=== PATIENT | male | born 1940 | race Two or more races ===

== ENCOUNTER 2021-08-26 07:03 | Day surgery (SDC) | payer OTHER ==
[2021-08-26] VITALS (10 sets, daily range): BP systolic 118–153; BP diastolic 53–74
[~2021-08-26] VITALS: Ht 193 cm; Wt 99.8 kg
[~2021-08-26 07:03] MED LIST: ATO40T PO; FURO1TAB31 PO; LISI20TA28 PO; POTA10TA51 PO; WARF5TAB71 PO
[2021-08-26] MEDS ORDERED: HEPARIN SODIUM (PORCINE) 5000 UNITS/ML 1ML VIAL ONE (08:37)
[2021-08-26] MEDS ORDERED: VERAPAMIL 2.5MG/ML INJ 2ML VIAL IV ONE (08:38)
[2021-08-26] MEDS ORDERED: MIDAZOLAM HCL 2MG/2ML 2ml VIAL (1mg/ml) ONE (08:38)
[2021-08-26] MEDS ORDERED: fentaNYL CITRATE 100 MCG/2 ML VL ONE (08:38)
[2021-08-26] MEDS ORDERED: ANGIOMAX 250 MG VIAL IV ONE ×2 (08:39→10:05)
[2021-08-26] MEDS ORDERED: SODIUM CHL 0.9% 50 ML ONE ×2 (08:40→10:05)
[2021-08-26] MEDS ORDERED: LIDOCAINE 2%HCL (LOCAL ANESTH.) INJ 10ml MDV ONE (08:52)
[2021-08-26] MEDS ORDERED: IODIXANOL 320MG/ML 100ML BTL IV ONE ×2 (09:22→09:53)
[2021-08-26] MEDS ORDERED: CLOPIDOGREL 300 MG TAB ONE (10:25)
[2021-08-26] MEDS ORDERED: ASPirin 325 MG TAB ONE (10:26)
[2021-08-26] MEDS ORDERED: SODIUM CHLORIDE 0.9% 1,000 ML IV SCH (10:35)
== END 2021-08-26 15:57 | disposition home or self-care (01) ==
LOC: CATH 07:03
PROVIDERS: ATTEND Internal Medicine Cardiovascular Disease
DX: R94.39 Abnormal result of other cardiovascular function study (principal); I25.10 Atherosclerotic heart disease of native coronary artery without angina pectoris; T82.855A Stenosis of coronary artery stent, initial encounter; Z79.02 Long term (current) use of antithrombotics/antiplatelets; Z80.1 Family history of malignant neoplasm of trachea, bronchus and lung; Z87.891 Personal history of nicotine dependence; Z20.822 Contact with and (suspected) exposure to COVID-19; Y82.8 Other medical devices associated with adverse incidents; Y83.1 Surgical operation with implant of artificial internal device as the cause of abnormal reaction of the patient, or of later complication, without mention of misadventure at the time of the procedure
CPT/HCPCS: 93458; C1725; C1726; C1769; C1874; C1887; C1894; C9600; J0583; J1644; J2001; J2250; J3010; J7030; Q9967; U0003; 99152; 99153

== ENCOUNTER 2022-01-27 10:36 | Inpatient (IN) | payer OTHER ==
[~2022-01-27] VITALS: Ht 193 cm; Wt 102.6 kg
[2022-01-27 11:51] LABS: Basophils # (auto) 0 10 ^3/uL (0-0.2); Basophils % (auto) 0.5 % (0.0-2.0); Eosinophils # (auto) 0.1 10 ^3/uL (0-0.8); Hematocrit 38.3 % (41.0-53.0); Hemoglobin 12.4 g/dL (13.5-17.5); Lymphocytes # (auto) 0.8 10 ^3/uL (0.4-5.4); Lymphocytes % (auto) 11.2 % (10.0-50.0); Mean Corpuscular Hemoglobin 30.4 pg (28.0-32.0); Mean Corpuscular Hgb Conc. 32.3 g/dL (32.0-36.0); Mean Corpuscular Volume 94.1 fL (80.0-100.0); Monocytes # (auto) 0.9 10 ^3/uL (0-1.3); Monocytes % (auto) 12.6 % (0.0-12.0); Neutrophils # (auto) 5.3 10 ^3/uL (1.6-8.6); Neutrophils % (auto) 74.7 % (37.0-80.0); Red Blood Cells 4.07 10^6/uL (4.5-5.90); Red Cell Distribution Width 15.1 % (11.8-14.3); White Blood Cell 7.1 10^3/uL (4.4-10.8)
[2022-01-27 12:09] LABS: INR 1.18 (0.9-1.15); Partial Thromboplastin Time 28.2 sec (24.6-33.4)
[2022-01-27 12:10] LABS: Albumin 3.4 g/dL (3.4-5.0); Calcium 8.9 mg/dL (8.5-10.1); Magnesium 2.4 mg/dL (1.6-2.6); Potassium 4.3 mmol/L (3.5-5.1)
[2022-01-27 12:14] LABS: BUN/Creatinine Ratio 24.2; Bilirubin, Total 1.3 mg/dL (0.2-1.0); Total Protein 6.9 g/dL (6.4-8.2)
[2022-01-27 12:25] LABS: Urine WBC None Seen /hpf (0 - 3)
[2022-01-27 12:32] LABS: Urine Bacteria NONE SEEN /hpf (None Seen); Urine Blood 3+ /uL (Negative); Urine Specific Gravity 1.014 (1.001-1.035)
[2022-01-27] MEDS ORDERED: MORPHINE SULFATE INJ 2 MG/ml SYRG IV PRN (18:30)
[2022-01-27] MEDS ORDERED: NITROGLYCERIN 0.4 MG SL TAB SL PRN (18:30)
[2022-01-27 22:47] VITALS: BP 116/44
[2022-01-27 22:48] VITALS: BP 116/44
[2022-01-28] VITALS (7 sets, daily range): BP systolic 93–112; BP diastolic 54–63
[2022-01-28 07:00] LABS: BUN/Creatinine Ratio 28.6; Calcium 9.1 mg/dL (8.5-10.1); Potassium 4.2 mmol/L (3.5-5.1)
[2022-01-28] MEDS ORDERED: SOD CHL 0.45% 1,000 ML IV SCH (08:30)
[2022-01-28] MEDS ORDERED: LISINOPRIL 20 MG TAB PO SCH (10:00)
[2022-01-28] MEDS: POTASSIUM CHL 20 Meq TABLET PO SCH (10:11)
[2022-01-28] MEDS: FUROSEMIDE 40 MG TAB PO SCH (10:11)
[2022-01-28] MEDS: CLOPIDOGREL BISULFATE 75 MG TAB PO SCH (10:12)
[2022-01-28] MEDS: ATORVASTATIN 20 MG TAB PO SCH (21:20)
[2022-01-28] MEDS: APIXABAN 5 MG TAB PO SCH (21:20)
[2022-01-29] VITALS (8 sets, daily range): BP systolic 103–136; BP diastolic 55–77
[2022-01-29] MEDS ORDERED: ALBUTEROL SULF 2.5 MG/0.5ML(0.5%) NEB SOLN NEB PRN (08:00)
[2022-01-29] MEDS ORDERED: IPRATROPIUM BROM 0.5 MG/2.5ML INH SOL NEB PRN (08:00)
[2022-01-29] MEDS: APIXABAN 5 MG TAB PO SCH ×2 (10:53→22:05)
[2022-01-29] MEDS: CLOPIDOGREL BISULFATE 75 MG TAB PO SCH (10:53)
[2022-01-29] MEDS: FUROSEMIDE 40 MG TAB PO SCH (10:55)
[2022-01-29] MEDS: POTASSIUM CHL 20 Meq TABLET PO SCH (10:55)
[2022-01-29] MEDS: CARVEDILOL 3.125 MG TAB PO SCH ×2 (10:57→22:00)
[2022-01-29] MEDS: DAPAGLIFLOZIN 5 MG TAB PO SCH (10:57)
[2022-01-29 11:53] LABS: BUN/Creatinine Ratio 26.9; Calcium 9.1 mg/dL (8.5-10.1); Potassium 4.1 mmol/L (3.5-5.1)
[2022-01-29 12:25] LABS: INR 1.2 (0.9-1.15)
[2022-01-29 18:06] LABS: Urine Bacteria NONE SEEN /hpf (None Seen); Urine Blood 3+ /uL (Negative); Urine Specific Gravity 1.013 (1.001-1.035); Urine WBC 3 /hpf (0 - 3)
[2022-01-29] MEDS: ATORVASTATIN 20 MG TAB PO SCH (22:05)
[2022-01-30 04:58] LABS: Basophils # (auto) 0 10 ^3/uL (0-0.2); Basophils % (auto) 0.5 % (0.0-2.0); Eosinophils # (auto) 0.1 10 ^3/uL (0-0.8); Eosinophils % (auto) 1.8 % (0.0-7.0); Hematocrit 37.1 % (41.0-53.0); Hemoglobin 12.5 g/dL (13.5-17.5); Lymphocytes % (auto) 14.6 % (10.0-50.0); Mean Corpuscular Hemoglobin 30.8 pg (28.0-32.0); Mean Corpuscular Hgb Conc. 33.6 g/dL (32.0-36.0); Mean Corpuscular Volume 91.8 fL (80.0-100.0); Monocytes % (auto) 14.3 % (0.0-12.0); Neutrophils # (auto) 4.8 10 ^3/uL (1.6-8.6); Neutrophils % (auto) 68.8 % (37.0-80.0); Red Blood Cells 4.04 10^6/uL (4.5-5.90); Red Cell Distribution Width 15.1 % (11.8-14.3)
[2022-01-30 05:00] VITALS: BP 118/59
[2022-01-30 06:04] LABS: BUN/Creatinine Ratio 26.6; Calcium 8.9 mg/dL (8.5-10.1); Potassium 4.3 mmol/L (3.5-5.1)
[2022-01-30 09:00] VITALS: BP 113/66
[2022-01-30] MEDS: DAPAGLIFLOZIN 5 MG TAB PO SCH (09:45)
[2022-01-30] MEDS: POTASSIUM CHL 20 Meq TABLET PO SCH (09:45)
[2022-01-30] MEDS: CARVEDILOL 3.125 MG TAB PO SCH (09:46)
[2022-01-30] MEDS: CLOPIDOGREL BISULFATE 75 MG TAB PO SCH (09:46)
[2022-01-30] MEDS: FUROSEMIDE 40 MG TAB PO SCH (09:46)
[2022-01-30] MEDS: APIXABAN 5 MG TAB PO SCH (09:46)
[2022-01-30 13:00] VITALS: BP 113/64
[2022-01-30] MEDS ORDERED: TAM04C PO (14:21)
[2022-01-30] MEDS ORDERED: FINA5TAB4 PO (14:21)
[2022-01-30 15:53] VITALS: BP 113/60
[2022-01-30 17:00] VITALS: BP 126/61
== END 2022-01-30 17:20 | disposition home or self-care (01) | DRG 303 ==
LOC: ER 10:36 → TELE 18:29 → TELE-CENTR 22:24
PROVIDERS: ADMIT Hospitalist; ATTEND Hospitalist
PROC: 05H933Z Insertion of Infusion Device into Right Brachial Vein, Percutaneous Approach (ICD-10-PCS; principal; 2022-01-27)
PROC: B54MZZA Ultrasonography of Right Upper Extremity Veins, Guidance (ICD-10-PCS; 2022-01-27)
DX: I25.10 Atherosclerotic heart disease of native coronary artery without angina pectoris (principal); I50.20 Unspecified systolic (congestive) heart failure; J98.11 Atelectasis; N13.2 Hydronephrosis with renal and ureteral calculous obstruction; N13.8 Other obstructive and reflux uropathy; N17.9 Acute kidney failure, unspecified; E11.21 Type 2 diabetes mellitus with diabetic nephropathy; E78.5 Hyperlipidemia, unspecified; I48.91 Unspecified atrial fibrillation; I11.0 Hypertensive heart disease with heart failure; J43.9 Emphysema, unspecified; N40.1 Benign prostatic hyperplasia with lower urinary tract symptoms; Z20.822 Contact with and (suspected) exposure to COVID-19; N32.0 Bladder-neck obstruction; N39.490 Overflow incontinence; Z79.02 Long term (current) use of antithrombotics/antiplatelets; I25.2 Old myocardial infarction; Z79.899 Other long term (current) drug therapy; Z85.118 Personal history of other malignant neoplasm of bronchus and lung; Z95.5 Presence of coronary angioplasty implant and graft; Z82.49 Family history of ischemic heart disease and other diseases of the circulatory system
CPT/HCPCS: 36415; 71045; 71250; 76775; 80048; 80053; 81001; 83735; 83880; 84443; 84484; 85025; 85379; 85610; 85730; 87081; 93005; 93306; 97163; G0378

== ENCOUNTER 2022-02-01 23:18 | Emergency (ER) | payer OTHER ==
[~2022-02-01 23:18] MED LIST changes: +FINA5TAB4 PO; +TAM04C PO
== END 2022-02-02 00:22 | disposition left against medical advice (07) ==
LOC: ER 23:18
DX: R31.9 Hematuria, unspecified (principal); Z53.21 Procedure and treatment not carried out due to patient leaving prior to being seen by health care provider

== ENCOUNTER 2022-04-05 06:46 | Inpatient (IN) | payer OTHER ==
[~2022-04-05] VITALS: Ht 188 cm; Wt 105.8 kg
[2022-04-05] VITALS (13 sets, daily range): BP systolic 100–133; BP diastolic 55–86
[~2022-04-05 06:46] MED LIST changes: -WARF5TAB71 PO
[2022-04-05] MEDS ORDERED: VANCOMYCIN 1GM/250ML 250 ML IV ONE ×2 (07:30→07:40)
[2022-04-05] MEDS ORDERED: VANCOMYCIN HCL 1000 MG VL ONE (07:52)
[2022-04-05] MEDS ORDERED: MIDAZOLAM HCL 2MG/2ML 2ml VIAL (1mg/ml) ONE (07:52)
[2022-04-05] MEDS ORDERED: fentaNYL CITRATE 100 MCG/2 ML VL ONE (07:52)
[2022-04-05] MEDS ORDERED: LIDOCAINE 2%HCL (LOCAL ANESTH.) INJ 20ML MDV ONE (07:53)
[2022-04-05] MEDS ORDERED: IOHEXOL 350 MG/ML 100ML IJ ONE ×2 (08:16→09:42)
[2022-04-05] MEDS ORDERED: ceFAZolin 1GM VL ONE (08:32)
[2022-04-05 13:09] LABS: Hematocrit 35.3 % (41.0-53.0); Hemoglobin 11.4 g/dL (13.5-17.5); Mean Corpuscular Hemoglobin 29.4 pg (28.0-32.0); Mean Corpuscular Hgb Conc. 32.2 g/dL (32.0-36.0); Mean Corpuscular Volume 91.4 fL (80.0-100.0); Red Blood Cells 3.86 10^6/uL (4.5-5.90); Red Cell Distribution Width 16.9 % (11.8-14.3); White Blood Cell 5.8 10^3/uL (4.4-10.8)
[2022-04-05 13:21] LABS: Band Neutrophils % (manual) 0; Basophils % (manual) 0 (0.0-2.0); Blast Cells 0; Eosinophils % (manual) 0 (0-7); Metamyelocytes % 0; Myelocytes % 0; Promyelocytes % 0; Reactive Lymphocytes 0
[2022-04-05 13:36] LABS: Alanine Aminotransferase 31 U/L (16-61); Anion Gap 8 (5-15); BUN/Creatinine Ratio 20.9; Blood Urea Nitrogen 29 mg/dL (7-18); Calcium 8.1 mg/dL (8.5-10.1); Carbon Dioxide 23 mmol/L (21-32); Chloride 112 mmol/L (98-107); GFR African American 63 mL/min; GFR Non-African American 52 mL/min; Glucose 98 mg/dL (74-106); Potassium 4.9 mmol/L (3.5-5.1); Sodium 143 mmol/L (136-145)
[2022-04-05 13:39] LABS: Alkaline Phosphatase 188 U/L (45-117); Aspartate Aminotransferase 23 U/L (15-37); Bilirubin, Total 1.2 mg/dL (0.2-1.0); Total Protein 6.3 g/dL (6.4-8.2)
[2022-04-05 14:24] LABS: Lymphocytes % (manual) 15 (10.0-50.0); Monocytes % (manual) 24 (0-12)
[2022-04-05] MEDS ORDERED: TAMSULOSIN HYDROCHLORIDE 0.4 MG CAP PO SCH (18:00)
[2022-04-05] MEDS ORDERED: VANCOMYCIN 1GM/250ML 250 ML IV SCH (20:00)
[2022-04-05] MEDS ORDERED: ATORVASTATIN 20 MG TAB PO SCH (22:00)
[2022-04-05] MEDS: DOXYCYCLINE 100 MG TAB/CAP PO SCH (22:19)
[2022-04-06 04:30] VITALS: BP 104/70
[2022-04-06 08:00] VITALS: BP 114/69
[2022-04-06] MEDS ORDERED: VANCOMYCIN 1GM/250ML 250 ML IV SCH (08:00)
[2022-04-06] MEDS: DOXYCYCLINE 100 MG TAB/CAP PO SCH (09:43)
[2022-04-06] MEDS ORDERED: FINASTERIDE 5 MG TAB PO SCH (10:00)
[2022-04-06] MEDS ORDERED: LISINOPRIL 20 MG TAB PO SCH (10:00)
[2022-04-06] MEDS ORDERED: FUROSEMIDE 40 MG TAB PO SCH (10:00)
[2022-04-06] MEDS ORDERED: POTASSIUM CHL 20 Meq TABLET PO SCH (10:00)
[2022-04-06 12:00] VITALS: BP 112/68
[2022-04-06 12:26] VITALS: BP 112/68
== END 2022-04-06 14:30 | disposition home or self-care (01) | DRG 227 ==
LOC: CATH 06:46 → TELE 10:31 → TELE-EAST 16:50
PROVIDERS: ADMIT Specialist; ATTEND Specialist
PROC: 0JH609Z Insertion of Cardiac Resynchronization Defibrillator Pulse Generator into Chest Subcutaneous Tissue and Fascia, Open Approach (ICD-10-PCS; principal; 2022-04-05)
PROC: 02HK3KZ Insertion of Defibrillator Lead into Right Ventricle, Percutaneous Approach (ICD-10-PCS; 2022-04-05)
PROC: 02HL3KZ Insertion of Defibrillator Lead into Left Ventricle, Percutaneous Approach (ICD-10-PCS; 2022-04-05)
DX: I48.91 Unspecified atrial fibrillation (principal); I50.9 Heart failure, unspecified; Z20.822 Contact with and (suspected) exposure to COVID-19; I25.5 Ischemic cardiomyopathy; Z85.72 Personal history of non-Hodgkin lymphomas
CPT/HCPCS: 33225; 33249; 36415; 71045; 80053; 85007; 85027; 86850; 86900; 86901; 93005; 99152; 99153; C1721; C1769; G0378; J0690; J2250

== ENCOUNTER 2022-05-03 12:26 | Inpatient (IN) | payer OTHER ==
[~2022-05-03] VITALS: Ht 193 cm; Wt 109.0 kg
[2022-05-03] MEDS ORDERED: FUROSEMIDE 40 MG/4 ML VIAL IV ONE (13:30)
[2022-05-03 14:27] LABS: Basophils # (auto) 0 10 ^3/uL (0-0.2); Basophils % (auto) 0.6 % (0.0-2.0); Eosinophils # (auto) 0.1 10 ^3/uL (0-0.8); Hematocrit 38.5 % (41.0-53.0); Hemoglobin 12.2 g/dL (13.5-17.5); Lymphocytes # (auto) 0.7 10 ^3/uL (0.4-5.4); Lymphocytes % (auto) 11.6 % (10.0-50.0); Mean Corpuscular Hemoglobin 29.8 pg (28.0-32.0); Mean Corpuscular Hgb Conc. 31.6 g/dL (32.0-36.0); Mean Corpuscular Volume 94.2 fL (80.0-100.0); Monocytes % (auto) 15.3 % (0.0-12.0); Neutrophils # (auto) 4.5 10 ^3/uL (1.6-8.6); Neutrophils % (auto) 71.5 % (37.0-80.0); Nucleated Red Blood Cells % 0.2 %; Red Blood Cells 4.09 10^6/uL (4.5-5.90); Red Cell Distribution Width 18.5 % (11.8-14.3); White Blood Cell 6.3 10^3/uL (4.4-10.8)
[2022-05-03 14:47] LABS: Albumin 3.3 g/dL (3.4-5.0); BUN/Creatinine Ratio 20.1; Calcium 8.8 mg/dL (8.5-10.1); Potassium 4.6 mmol/L (3.5-5.1)
[2022-05-03 14:50] LABS: Bilirubin, Total 1.2 mg/dL (0.2-1.0); Total Protein 6.7 g/dL (6.4-8.2)
[2022-05-03 14:53] LABS: INR 1.23 (0.9-1.15); Partial Thromboplastin Time 25.9 sec (24.6-33.4)
[2022-05-03] MEDS ORDERED: ENOXAPARIN SOD 120 MG/0.8 ML SYRINGE SC ONE (15:30)
[2022-05-03] MEDS ORDERED: MORPHINE SULFATE INJ 2 MG/ml SYRG IV PRN (19:15)
[2022-05-03] MEDS ORDERED: NITROGLYCERIN 0.4 MG SL TAB SL PRN (19:15)
[2022-05-03] MEDS ORDERED: NITROGLYCERIN 0.4MG/HR TOPICAL PATCH TD ONE (19:30)
[2022-05-03 21:55] LABS: Cholesterol 100 mg/dL (< 200); LDL Cholesterol 40 mg/dL (< 100); Triglycerides 63 mg/dL (< 150)
[2022-05-03 21:58] LABS: HDL Cholesterol 61 mg/dL (40-59)
[2022-05-04 01:45] LABS: Urine Bacteria NONE SEEN /hpf (None Seen); Urine Blood 3+ /uL (Negative); Urine Specific Gravity 1.015 (1.001-1.035); Urine WBC 445 /hpf (0 - 3); Urine WBC Clumps PRESENT /hpf (None Seen)
[2022-05-04 05:45] LABS: Hematocrit 35.7 % (41.0-53.0); Hemoglobin 11.4 g/dL (13.5-17.5); Mean Corpuscular Hemoglobin 29.8 pg (28.0-32.0); Red Blood Cells 3.84 10^6/uL (4.5-5.90); Red Cell Distribution Width 17.9 % (11.8-14.3); White Blood Cell 5.7 10^3/uL (4.4-10.8)
[2022-05-04] MEDS ORDERED: FUROSEMIDE 20 MG/2 ML VIAL IV SCH (06:00)
[2022-05-04 06:24] LABS: BUN/Creatinine Ratio 23.3; Calcium 8.7 mg/dL (8.5-10.1); Potassium 4.7 mmol/L (3.5-5.1)
[2022-05-04 06:27] LABS: Basophils % (manual) 0 (0.0-2.0); Blast Cells 0; Metamyelocytes % 0; Myelocytes % 0; Promyelocytes % 0; Reactive Lymphocytes 0
[2022-05-04 09:26] LABS: Band Neutrophils % (manual) 7; Eosinophils % (manual) 1 (0-7); Lymphocytes % (manual) 11 (10.0-50.0); Monocytes % (manual) 17 (0-12)
[2022-05-04] MEDS ORDERED: ENOXAPARIN SOD 40 MG/0.4 ML SYRINGE SC SCH (10:00)
[2022-05-04] MEDS ORDERED: ENOXAPARIN SOD 100 MG/1 ML SYRINGE SC SCH (10:00)
[2022-05-04] MEDS ORDERED: ASPirin 81 mg TAB PO SCH (10:00)
[2022-05-04] MEDS ORDERED: NITROGLYCERIN 0.4MG/HR TOPICAL PATCH TD SCH (10:00)
[2022-05-04] MEDS: POTASSIUM CHL 20 Meq TABLET PO SCH ×2 (10:34→10:39)
[2022-05-04] MEDS: LISINOPRIL 20 MG TAB PO SCH (10:34)
[2022-05-04] MEDS: ATORVASTATIN 20 MG TAB PO SCH (10:39)
[2022-05-04] MEDS: ENOXAPARIN SOD 120 MG/0.8 ML SYRINGE SC SCH ×2 (10:40→21:58)
[2022-05-04] MEDS: FINASTERIDE 5 MG TAB PO SCH (11:03)
[2022-05-04 15:29] VITALS: BP 99/55
[2022-05-04 16:53] VITALS: BP 99/55
[2022-05-04] MEDS: FUROSEMIDE 100 MG/10ML VIAL IV SCH (17:32)
[2022-05-04] MEDS ORDERED: TAMSULOSIN HYDROCHLORIDE 0.4 MG CAP PO SCH (18:00)
[2022-05-04 23:28] VITALS: BP 90/57
[2022-05-05] MEDS: FUROSEMIDE 100 MG/10ML VIAL IV SCH ×2 (06:00→07:00)
[2022-05-05] MEDS: ATORVASTATIN 20 MG TAB PO SCH (08:35)
[2022-05-05] MEDS: LISINOPRIL 20 MG TAB PO SCH (08:35)
[2022-05-05] MEDS: POTASSIUM CHL 20 Meq TABLET PO SCH (08:36)
[2022-05-05] MEDS: ENOXAPARIN SOD 120 MG/0.8 ML SYRINGE SC SCH (08:36)
[2022-05-05] MEDS: FINASTERIDE 5 MG TAB PO SCH (08:36)
[2022-05-05 09:00] VITALS: BP 98/59
[2022-05-05] MEDS ORDERED: CLOPIDOGREL BISULFATE 75 MG TAB PO SCH (10:00)
[2022-05-05] MEDS ORDERED: FURO1TAB32 PO (12:43)
[2022-05-05 13:00] VITALS: BP 97/34
[2022-05-05] MEDS ORDERED: LEVO500T31 PO (13:03)
[2022-05-05] MEDS ORDERED: levoFLOXacin 500 MG TAB PO SCH (13:15)
[2022-05-05 14:20] VITALS: BP 97/34
[2022-05-05] MEDS ORDERED: POTA-180 PO (15:03)
[2022-05-05] MEDS ORDERED: FURO1TAB33 PO (15:03)
[2022-05-06] MEDS ORDERED: APIX5TAB PO (03:20)
== END 2022-05-05 16:30 | disposition home health service (06) | DRG 291 ==
LOC: ER 12:26 → TELE 19:22 → TELE-WESTW 05-04 15:05
PROVIDERS: ADMIT Registered Nurse; ATTEND Internal Medicine
DX: I11.0 Hypertensive heart disease with heart failure (principal); I50.43 Acute on chronic combined systolic (congestive) and diastolic (congestive) heart failure; N39.0 Urinary tract infection, site not specified; E78.5 Hyperlipidemia, unspecified; E66.01 Morbid (severe) obesity due to excess calories; Z68.29 Body mass index [BMI] 29.0-29.9, adult; I25.10 Atherosclerotic heart disease of native coronary artery without angina pectoris; I25.5 Ischemic cardiomyopathy; I48.0 Paroxysmal atrial fibrillation; N40.0 Benign prostatic hyperplasia without lower urinary tract symptoms; Z79.02 Long term (current) use of antithrombotics/antiplatelets; Z79.899 Other long term (current) drug therapy; Z85.118 Personal history of other malignant neoplasm of bronchus and lung; Z85.72 Personal history of non-Hodgkin lymphomas; Z95.5 Presence of coronary angioplasty implant and graft; Z95.810 Presence of automatic (implantable) cardiac defibrillator
CPT/HCPCS: 36415; 71045; 78582; 80048; 80053; 80061; 81001; 83036; 83880; 84443; 84484; 85007; 85025; 85027; 85379; 85610; 85730; 87426; 93005; 93970; 96372; 96374; 99291; G0378